=== PATIENT | female | born 1950 | race Caucasian/White ===

== ENCOUNTER 2016-11-21 15:24 | Emergency (ER) | payer MEDICARE, MEDICAID ==
[2016-11-21] MEDS ORDERED: PROMETHAZINE 25 MG/ML VIAL ONE (22:08)
[2016-11-21] MEDS ORDERED: SODIUM CHLORIDE 0.9% 1,000 ML ONE (22:09)
[2016-11-21] MEDS ORDERED: FAMOTIDINE 20 MG INJ ONE (22:09)
[2016-11-21] MEDS ORDERED: SODIUM CHLORIDE 0.9% 50 ML IV ONE (22:10)
[2016-11-21] MEDS ORDERED: DILAUDID 1 MG/ML AMP ONE (22:10)
== END 2016-11-22 01:56 | disposition home or self-care (01) ==
LOC: ER 15:24
CPT/HCPCS: 36415 ×2; 74176 ×2; 80053 ×2; 81001 ×2; 83690 ×2; 85025 ×2; 96361 ×2; 96374 ×2; 96375 ×2; 99284; J1170; J2550